=== PATIENT | male | born 1980 | race Caucasian/White ===

== ENCOUNTER 2024-08-28 10:55 | Emergency (ER) | payer OTHER, SELFPAY ==
[2024-08-28 11:09] VITALS: BP 149/98
--- NOTE | 2024-08-28 12:14 | ED.GENMED ---
History of Present Illness
General
Chief Complaint: Cold/Flu/URI Symptoms
Source: patient
Time Seen by Provider: 08/28/24 11:16
History of Present Illness
History of Present Illness:
43-year-old male with no significant past medical history presenting to the ER for evaluation of persistent cough that has been ongoing for about 2 weeks. Patient did have COVID about 3 weeks ago but states multiple other family members also have a
cough and 2 of which were diagnosed with 'walking pneumonia and prescribed antibiotics with good relief of symptoms. Patient is also here with his younger son who is also being evaluated for similar. No reported fevers. No chest pain or shortness
of breath. Did not take anything for symptoms prior to arrival.
Past History
Past History
ED Past Medical History: None
ED Past Surgical History: Tonsilectomy
Social History
Tobacco: Non-smoker
Alcohol: None
Drug: None
Personal: Single
Living: with family
Review of Systems
Review of Systems
All Other Systems: ROS reviewed and negative except as documented in HPI and ROS
Phy Exam
Physical Exam
Physical Exam:
GENERAL: Alert , in no apparent distress
EYE: conjunctiva clear
NECK: Supple
ENT: o/p clr, mmm.
CARDIAC: Regular rate and rhythm
LUNGS: Clear breath sounds bilaterally, no acute respiratory distress, no wheezes/rales/rhonchi
NEUROLOGICAL: Alert and oriented
SKIN: Warm and dry, skin intact.
MUSCULOSKELETAL: well perfused.
PSYCH: Normal and appropriate interaction.
Scores
Heart Failure Risk
Heart Failure Risk Score: Not Applicable
Heart Score for Chest Pain Patients
STEMI patient?: Not applicable
Withdrawal Assessment of Alcohol
Withdrawal Assessment Completed?: Not applicable
Course
Orders/Labs/Results
Orders:
Orders
08/28/24 11:16
CR Chest - 2 Views Urgent
Comment:
Reason For Exam: cough, recent covid
Vital Signs
Initial and Last Documented VS:
Initial Vital Signs
Temp Pulse Resp BP Pulse Ox
99.6 F 76 16 149/98 97
08/28/24 11:09 08/28/24 11:09 08/28/24 11:09 08/28/24 11:09 08/28/24 11:09
Last Documented Vital Signs
Temp Pulse Resp BP Pulse Ox
99.6 F 76 16 149/98 97
08/28/24 11:09 08/28/24 11:09 08/28/24 11:09 08/28/24 11:09 08/28/24 11:09
MDM/Problems Addressed
Differential Diagnosis Includes:
Post COVID syndrome, flu, pneumonia
MDM/Problems Addressed:
43 year old male with cough post covid, multiple family members ill with walking pneumonia. Appears well, normal vitals, lungs clear. Will obtain CXR. Plan to d/c
*Radiology
Radiology exam reviewed: preliminary read by ED provider (Normal chest x-ray)
*Pulse Oximetry
Patient hypoxic: no
*Critical Care Note
Total Time (30-74mins, 75-104mins- exclusive of procedures): Not Applicable
Patient Management
Escalation/DeEscalation of care consider admission/obs:
Chest x-ray normal. Will provide with prescription for antibiotic but I did advise patient's symptoms are likely viral or post COVID. Would hold antibiotic for another 48 to 72 hours and if no symptom improvement may start taking. Aware of return
precautions. Stable for discharge.
ED Attending Note
-
Portions of this chart may have been created with voice recognition software.� Occasional wrong word or��sound alike� substitutions may have occurred due to the inherent limitations of voice recognition software.
Discharge Plan
Departure
Patient Disposition: Home (Routine Discharge)
Date of Disposition: 08/28/24
Time of Disposition: 12:14
Patient with high blood pressure during this ER visit?: Yes
Discharge Problem:
Cough
Instructions: Cough, Adult ED
Prescriptions:
New
azithromycin [Zithromax Z-John] 250 mg tablet
250 mg PO DAILY Qty: 6 0RF
Rx Instructions:
Take two tabs day 1, 1 tab remaining days
No Action
No Meds [No Current Medications]
metronidazole 500 MG tablet
500 mg PO TID Qty: 30 0RF
levofloxacin 500 MG tablet
500 mg PO DAILY 10 Days 0RF
Referrals:
Karlee Fisher PA [Family Provider] -
Interventions
Interventions:
*Risk Screen - Suicide Last Done: 08/28/24 11:11
*General Assessment Last Done: 08/28/24 12:24
*Neglect/Abuse Screening Last Done: 08/28/24 11:11
ED- Fall Risk Assessment Last Done: 08/28/24 12:24
*ED COVID-19 Vaccine History Last Done: 08/28/24 12:24
*Nursing Disposition Last Done: 08/28/24 12:24
ED- Pulmonary Assessment Last Done: 08/28/24 12:15
Discharge Date and Time
Discharge Date/Time: 08/28/24 12:25
Print Language: [place]
== END 2024-08-28 12:25 | disposition home or self-care (01) ==
LOC: EMR 10:55
PROVIDERS: EMERGENCY PHYSICIAN Emergency Medicine; FAMILY PHYSICIAN Physician Assistant Medical
DX: R05.9 Cough, unspecified (principal); Z86.16 Personal history of COVID-19
CPT/HCPCS: 99283; 71046